=== PATIENT | female | born 1985 | race African-American/Black ===

== ENCOUNTER 2018-01-10 06:17 | Day surgery (SDC) | payer OTHER ==
[~2018-01-10] VITALS: Ht 152.4 cm; Wt 62.6 kg
[~2018-01-10 06:17] MED LIST: ACETAMINOPHEN/CODEINE 300/30MG 1 TAB PO PRN; CLIN300C2 PO; IBUPROFEN 800 MG TAB PO PRN; MORPHINE SULFATE 4 MG/ML SYR IM/IVP PRN
[2018-01-10] MEDS ORDERED: ONDANSETRON 4 MG/2 ML VIAL IVP PRN (10:45)
[2018-01-10] MEDS ORDERED: ACETAMINOPHEN/CODEINE 300/30MG 1 TAB PO PRN (10:45)
[2018-01-10] MEDS ORDERED: IBUPROFEN 800 MG TAB PO PRN (10:45)
[2018-01-10] MEDS ORDERED: MORPHINE SULFATE 4 MG/ML SYR IM/IVP PRN (10:45)
[2018-01-10] MEDS ORDERED: PROPOFOL 200 MG/20 ML VIAL IV ONE (10:55)
[2018-01-10] MEDS ORDERED: SEVOFLURANE 250 ML BTL INH ONE (10:55)
[2018-01-10] MEDS ORDERED: MIDAZOLAM 2 MG/2 ML VIAL ONE (10:56)
[2018-01-10] MEDS ORDERED: fentaNYL 0.05 MG/ML VIAL ONE (10:56)
[2018-01-10] MEDS ORDERED: MEPERIDINE 50 MG/ML SYR ONE (10:56)
== END 2018-01-10 13:00 | disposition home or self-care (01) ==
LOC: MDS 06:17 → MMU 06:18 → MDS 13:00
PROVIDERS: ATTEND Obstetrics & Gynecology
DX: N87.9 Dysplasia of cervix uteri, unspecified (principal); D64.9 Anemia, unspecified; E11.9 Type 2 diabetes mellitus without complications; Z98.890 Other specified postprocedural states; Z79.899 Other long term (current) drug therapy
CPT/HCPCS: 57522; 82948; J2175; J2250; J2405; J2704; J3010; J7030